=== PATIENT | female | born 1950 | race Caucasian/White ===

== ENCOUNTER 2016-11-26 05:39 | Inpatient (IN) | payer OTHER ==
[~2016-11-26] VITALS: Ht 162.6 cm; Wt 120.7 kg
--- NOTE | ~2016-11-26 | HC ---
[facility] [place] [address] CONSULTATION Name: JAIME BOWMAN Room #: 445-P [facility] M.R.#: [id number] Admission: 11/26/16 Attend Phys: Salima Call MD, Discharge: Date of : 52 Report #: [id number] THIS REPORT FOR: //name// CC: Salima DE LA TORRE DATE OF SERVICE: 11/26/2016 REFERRING PROVIDER: Salima Call MD REASON FOR CONSULTATION: Sleep apnea and possible early sepsis. CHIEF COMPLAINT: Abdominal infection. HISTORY OF PRESENT ILLNESS: Our group was asked to assist with management in this patient postoperatively, currently is on [address], a pleasant 66-year-old woman without any past pulmonary history other than obstructive sleep apnea, apparently had had significant problems after an abdominal surgery that was complicated by sepsis after surgery with infected abdominal mesh, this has been managed with recurrent admissions, she states a 5 in the last year and ongoing antibiotics. She had recently seen Dr. Call for a second opinion and has undergone exploratory laparotomy with debridement of infected abdominal wall fascia and removal of infected mesh. Currently, she is present with wound VAC device in place, somewhat somnolent, but arousable. She denies any significant pulmonary disease requiring inhaled therapy and has no tobacco abuse history. Has obstructive sleep apnea, is very compliant with her nocturnal CPAP. PAST MEDICAL HISTORY: 1. Hypertension. 2. Obstructive sleep apnea. 3. Anxiety and depressive disorder. 4. History of infected abdominal mesh. ALLERGIES: Include PENICILLIN. OUTPATIENT MEDICATIONS: 1. Bupropion. 2. Buspirone. 3. Celebrex. 4. Vitamin D. 5. Vitamin B12. 6. Doxycycline. 7. Probiotic. 8. Metoprolol. 9. Multivitamin. [facility] [place] [address] CONSULTATION Name: JAIME BOWMAN Room #: 445-P [facility]..#: [id number] Admission: 11/26/16 Attend Phys: Salmia Call MD, Discharge: Date of : 52 Report #: [id number] 10. Tramadol. 11. Oxybutynin. 12. Nocturnal CPAP, unclear settings. SOCIAL HISTORY: The patient is a never smoker, no alcohol consumption. 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 FAMILY HISTORY: Negative for any significant pulmonary disease. REVIEW OF SYSTEMS: Difficult to obtain due to somnolence best I can tell. CONSTITUTIONAL: No fevers, chills or sweats, change in weight or appetite. ENT: No upper respiratory congestion, rhinorrhea or dysphagia. CARDIOVASCULAR: No other cardiac disease other than hypertension. GASTROINTESTINAL: No nausea, vomiting, diarrhea, constipation, has some intermittent abdominal pain. Has some chronic abdominal drainage. GENITOURINARY: No dysuria, no frequency, some incontinence. INTEGUMENT: Denies any new rash. MUSCULOSKELETAL: Chronic arthritis. PHYSICAL EXAMINATION: VITAL SIGNS: Afebrile, pulse 90s, respiratory rate 20, blood pressure 160/89, oxygen saturation 94% on 2 liters nasal cannula and tidal CO2 in the 30s. GENERAL: This is a pleasant elderly woman, somnolent, but in no distress. HEENT: Clear oropharynx, Mallampati 3 airway, no thrush. NECK: Supple, no lymphadenopathy. LUNGS: Diminished, but clear. No wheezes or crackles. HEART: regular. No murmurs or gallops. ABDOMEN: Soft, mild diffuse tenderness, wound VAC in place. EXTREMITIES: With trace lower extremity edema. They are warm with 2+ pulses. INTEGUMENT: No significant rash noted. LABORATORY DATA: Hemoglobin 11, hematocrit 36. No other laboratories to review. No other radiograph to review. IMPRESSION: 1. Status post abdominal surgery as described above. 2. History of obstructive sleep apnea noted. 3. Chronic wound infection. 4. History of hypertension. 5. Hypoxemic respiratory failure expected postoperatively, likely due to some mild atelectasis. SUGGESTIONS: 1. Encourage incentive spirometry. 2. The patient [place] [address] CONSULTATION Name: JAIME BOWMAN Room #: 445-P [facility] M.R.#: [id number] Admission: 11/26/16 Attend Phys: Salima Call MD, Discharge: Date of : 52 Report #: [id number] 3. Continuous oximetry and end tidal CO2 monitoring nocturnal CPAP device. 4. We will continue to follow along with you. Thank you for requesting our suggestions. Suggest p.r.n. IV antihypertensives if indicated, if any poor control of hypertension. By: [id number] Benny Kelly MD /nt
--- NOTE | ~2016-11-26 | O ---
Former[facility] [place] [address] OPERATIVE REPORT Name: JAIME BOWMAN Room #: 445-P REG [facility] M.R.#: [id number] Admission: 11/26/16 Attend Phys: Salima Call MD, Discharge: Date of : 51 Report #: [id number] THIS REPORT FOR: //name// CC: Salima DE LA TORRE DATE OF SERVICE: 11/26/2016 PREOPERATIVE DIAGNOSES: 1. Nonhealing infected post-surgical wound with exposed mesh. 2. Morbid obesity with a body mass index of 46.13. 3. Hypertension. 4. Obstructive sleep apnea. 5. History of a Adalid-en-Y gastric bypass. 6. Bilateral lower extremity joint pain. 7. Anxiety. 8. Suspected intra-abdominal adhesions. POSTOPERATIVE DIAGNOSES: 1. Nonhealing infected post-surgical wound with exposed mesh. 2. Morbid obesity with a body mass index of 46.13. 3. Hypertension. 4. Obstructive sleep apnea. 5. History of a Adalid-en-Y gastric bypass. 6. Bilateral lower extremity joint pain. 7. Anxiety. 8. Dense intra-abdominal adhesions. 9. Incarcerated recurrent incisional ventral hernia. 10. Loss of abdominal domain. PROCEDURES PERFORMED: 1. Exploratory laparotomy. 2. Extensive lysis of adhesions lasting 212 minutes. 3. Excisional debridement of an infected abdominal wall fascia with explantation of infected mesh. 4. Segmental small-bowel resections times 2. 5. Bilateral component separation of the anterior abdominal wall to assist in fascial closure. 6. Complex abdominal wall reconstruction with an open sandwiched repair of an incarcerated recurrent incisional ventral hernia using a biomesh buttress. 7. Adjacent tissue transfer closure of the anterior abdominal wall measuring 42 x 36 cm in dimension (1512 square cm). 8. Placement of a Prevena topical wound VAC device. 9. This is a modifier 22 procedure for extreme difficulty of procedure secondary to the longstanding infected synthetic mesh causing an intense [address] [address] OPERATIVE REPORT Name: JAIME BOWMAN Room #: 445-P [facility] M.R.#: [id number] Admission: 11/26/16 Attend Phys: Salima Call MD, Discharge: Date of : 51 Report #: [id number] desmoplastic reaction intraabdominally that required a nearly 3-1/2 hours lysis of adhesions in this morbidly obese patient, and push the total operative time to 5-1/2 hours and it is owed to the overall generalized complexity of the complex repair necessary. SURGEON: Salima Call MD ELEVATOR CONDUCTOR: Casper Sanchez MD ANESTHESIA: General endotracheal anesthesia. ESTIMATED BLOOD LOSS: 300 mL. COMPLICATIONS: None appreciated. SPECIMENS: 1. Segments of small-bowel to pathology. 2. Explanted mesh and infected fascia to pathology. 3. Culture swabs to microbiology. COMPLICATIONS: None appreciated. INDICATIONS: The patient is a 66-year-old obese female with a past history of a Adalid-en-Y gastric bypass for which she sustained an incisional ventral hernia. The patient then underwent repair of her hernia with placement of a synthetic mesh and was in her usual state of health until she underwent a panniculectomy nearly a year ago to reduce her large apron that was lifestyle limiting. Shortly after surgery, the patient did develop nonhealing wounds down her longitudinal midline wound as well as at the juncture of her longitudinal midline wound and her transverse skin incisions. These were treated with local wound care and unfortunately she has had copious green purulent drainage emanate from her wounds throughout her postoperative course over the past several months that have been treated with antibiotics and local wound care. After a thorough discussion with infectious disease as well as the patient's primary care provider and a long discussion with the patient, we have elected to perform definitive surgical management with explantation of her grossly infected indwelling synthetic mesh and repair of any hernias found underlying as indicated in the above listed procedures. PROCEDURE: After explaining the risks, benefits and alternatives of the procedure with the patient in detail and obtaining written consent, the patient was brought to the operating room supine on the operating room table. After conducting a thorough timeout procedure, verifying correct patient and procedure, the patient was given general endotracheal anesthesia. Once adequate anesthesia was obtained, her SCDs were hooked up to pneumatic compression device and she was given a preoperative dose of antibiotics in line with the [address] [address] OPERATIVE REPORT Name: JAIME BOWMAN Room #: 445-P REG [facility] M.R.#: [id number] Admission: 11/26/16 Attend Phys: Salima Call MD, Discharge: Date of : 51 Report #: [id number] protocol. The patient's abdomen was prepped and draped in standard surgical sterile fashion. A #10 bladed scalpel was used to create a longitudinal midline wound approximately 3 cm superior and 3 cm inferior to her open nonhealing wound that measured approximately the size of a half dollar. Electrocautery was used to carry this down through skin and subcutaneous tissues to ensure hemostasis. Once I arrived upon the fascia that had obviously infected extruded mesh that was not adherent to any underlying structures, it was quite difficult to assess what we were looking at as the mesh was dual layered and once inside the synthetic mesh net of the anterior layer of the mesh, we saw grossly purulent drainage with the underlying mesh edges that appeared to be PTFE rolled under and adherent to the intra-abdominal compartment. This was impossible to ascertain exactly what was going on at this juncture due to the intense desmoplastic inflammatory reaction seen. I was quickly evident that we would not be able to do a limited excision of any mesh patch at this juncture and would necessitate formal definitive management with complete explantation of the mesh and definitive repair with biologic mesh moving forward. As such, the incision was extended from the subxiphoid location to the suprapubic location down the midline with #10 bladed scalpel. Electrocautery was used to carry this down through skin and subcutaneous tissues to ensure hemostasis and I gain entry into the abdomen in the subxiphoid location. Upon arriving at the fascial level, I scored this longitudinally and placed a finger in the abdomen and opened the longitudinal midline wound in this controlled fashion. The patient's extreme left lateral lobe of the liver was intimately adherent to the back side of the abdominal wall at this juncture and upon taking this down from the abdominal wall, there was a small laceration made in the liver, which was controlled with electrocautery and Surgicel was placed in the wound for complete hemostasis. All ductal structures were fully cauterized to prevent any potential for future bile leakage. We then continued opening the abdominal wall using electrocautery, the incision was carried inferiorly until I arrived upon the most cephalad aspect of the indwelling hernia patch. I then proceeded to gain circumferential control of the mesh and ultimately necessitated opening it down the midline with curved Rios scissors. A careful tedious dissection was now undertaken with lysis of adhesions using combination of electrocautery, Rios scissors, and Metzenbaum scissors ensuring that we were careful any time we were near loops of bowel to hopefully prevent injury to the bowel itself. I was able to ultimately fully excise the infected mesh patch and all nonviable infected fascia from the abdominal wall and in doing so, there were two loops of small intestine intimately plastered to the mesh that had rolled underneath and this was impossible to separate without creating significant serosal defects. As such, this was chiseled off with Metzenbaum scissors and the excised mesh and synthetic suture was passed off the field as specimen. Culture swabs were taken and passed off the field upon entry into the abdominal cavity. Now that I had explanted all synthetic material from the abdominal wall in full as well as debrided back all nonviable fascia circumferentially, I proceeded to run the small-bowel in its entirety. The two areas of question that were denuded were beyond repair and I proceeded to perform 2 segmental small-bowel resections [address] [address] OPERATIVE REPORT Name: JAIME BOWMAN Room #: 445-P REG [facility] M.R.#: [id number] Admission: 11/26/16 Attend Phys: Salima Call MD, Discharge: Date of : 51 Report #: [id number] using HALI blue load 75 mm stapler to transect them on either side after creating a window in the mesentery with electrocautery. LigaSure Impact device was used to come across the mesentery for hemostasis. Upon doing so, it appeared that both segmental resections were just opposed towards one another and as such, I was able to perform only one stapled reanastomosis. The bowel loops were now aligned in a [id number] functional end-to-end fashion. A single suture of 3-0 PDS was placed in the antimesenteric aspect to hold them in alignment and the antimesenteric corners of the staple lines were removed. I then utilized another firing of the HALI-75 mm blue load stapler by passing each limb of the stapler down the 2 enterotomies clamping and firing to create the anastomosis. The common enterotomy was elevated and was closed using a TX blue load 60 stapler. Excess anastomotic tissue was removed with a #10 bladed scalpel. Finger palpation of the anastomosis showed it to be widely patent. A single suture of 3-0 PDS was placed in the crotch of the staple line to act as an anti-tension stitch and the mesenteric defect was closed using running 3-0 PDS in standard fashion. I did elect to oversew the entire TX staple line using numerous interrupted sutures of 3-0 PDS in standard Lembert fashion. The rest of the small bowel and colon appeared healthy and uninjured throughout. This was then placed back into the abdomen. At this juncture, we assessed the ability to repair the recurrent hernia that was evident in the bed of the wound upon entry into the abdominal cavity. The patient now had evidence of slight loss of abdominal domain with extreme difficulty in approximating the fascial edges down the midline. This was secondary to the necessity of the abdominal wall debridement to take off all nonviable tissue from the abdominal wall. I now proceeded to perform bilateral component separation technique in the transversus abdominis rectus release fashion. I proceeded to elevate each of the fascial edges with a Irving clamps and scored posteriorly along the midline approximately 5 mm lateral to the midline fascia. I was then able to enter into the transversus space using electrocautery for hemostasis and carried this dissection as far laterally as possible. This was done bilaterally in the standard fashion. I was now able to easily medialize the posterior rectus sheath along its length and proceeded to close this in a standard running fashion using looped #1 PDS suture for the posterior layer. This brought the posterior layer closed and allowed me to select a piece of Strattice biologic mesh that measured 40 x 25 cm in dimension. This was trimmed to measure 30 x 25 cm and was placed in the immediate retrorectus location where it was sutured into place using numerous sutures of 0 PDS at appropriate intervals. These were placed extremely laterally in order to assure ourselves that when the midline fascial wound was closed, there was no rippling to the mesh whatsoever. In fact, it was taut throughout. Once these were placed, I proceeded to place a 19-Samoan round Dale-Amato drain anterior to the biologic mesh and brought this out to the suprapubic location where it was anchored to the skin using 2-0 nylon in standard fashion. I then proceeded to close the anterior fascial wound using two separate sutures of looped #1 PDS running them from inferior to superior and then second one from superior to inferior where they were tied in the middle. This brought the abdominal wall completely close down the midline. [address] [address] OPERATIVE REPORT Name: JAIME BOWMAN Room #: 445-P [facility] M.R.#: [id number] Admission: 11/26/16 Attend Phys: Salima Call MD, Discharge: Date of : 51 Report #: [id number] I did elect to place the additional piece that was trimmed away of biologic mesh to use as an onlay rather than wasted and as such skin flaps were created circumferentially to elevate the skin and subcutaneous tissues away from the fascia externally. The biologic mesh was then placed as an onlay, sutured into position using 0 PDS suture in standard fashion. This gave us an excellently buttressed onlay as well. The subcutaneous aspect was irrigated. I placed two additional 19-Samoan round Dale-Amato drains, one emanating from left lower quadrant and the other from the right lower quadrant where they were sutured to the skin using 2-0 nylon in standard fashion. These crossed low in the abdominal wall and ran up the gutters appropriately. As the patient is obese, her wound was able to come together, but was under excessive tension and as such, I did perform an adjacent tissue transfer closure of the anterior abdominal wall to assist in a tension-free closure that would hopefully not dehisced. As such, I used electrocautery to create relaxing incisions internally along the lateral aspect of the subcutaneous flaps and was able to medially rotate vascularized pedicles of subcutaneous tissue medially to overly the biologic mesh in question. This was anchored into position using numerous sutures of 3-0 Vicryl for the deep layer and flaps as well as for the more superficial subcutaneous layers and dermis. These were placed in an interrupted inverted standard fashion throughout. The abdominal wall was irrigated, skin had already been excised upon entry into the abdomen to leave only vascularized healthy tissue throughout. I then closed the midline wound using skin preet and applied a topical wound VAC Prevena device to help hopefully prevent postoperative wound complications. At the end of the lengthy procedure, all instrument, needle, and sponge counts were correct. The patient tolerated the procedure without incident, was awakened in the operating room and transitioned to the recovery room in stable condition with no apparent complications. <ELECTRONICALLY SIGNED> By: Salima Call MD, FACS 11/28/16 [id number] Salima Call MD, FACS /nt
--- NOTE | ~2016-11-26 | HC ---
[facility] [place] [address] CONSULTATION Name: JAIME BOWMAN Room #: 445-P [facility] M.R.#: [id number] Admission: 11/26/16 Attend Phys: Salima Call MD, Discharge: Date of : 51 Report #: [id number] THIS REPORT FOR: //name// CC: Salima DE LA TORRE TYPE OF REPORT: Infectious disease consultation. REASON FOR CONSULTATION: I was asked to evaluate concerning infected ventral abdominal mesh. HISTORY OF PRESENT ILLNESS: The patient was a 66-year old who had undergone a Adalid-en-Y gastric bypass in the remote past. Subsequently, required a ventral hernia repair with synthetic mesh. This has become infected. She has been on multiple courses of antibiotics for the last 9 months and comes in now with plan for surgical intervention. On doxycycline. Today, she underwent exploratory laparotomy with extensive lysis of adhesions and explantation of infected synthetic mesh with debridement of the infected abdominal wall fascia. She had two segmental small bowel resections. She had repair of incarcerated incision ventral hernia with biomesh and complex abdominal wall reconstruction. ALLERGIES: PENICILLIN. MEDICATIONS: As noted on her MAR, now including ciprofloxacin, doxycycline and metronidazole. PAST MEDICAL HISTORY: Significant for anxiety, depression, obstructive sleep apnea, panniculectomy and morbid obesity status post Adalid-en-Y gastric bypass. FAMILY HISTORY: Noncontributory. SOCIAL HISTORY: Nonsmoker. No significant alcohol intake. REVIEW OF SYSTEMS: No cough or sputum production. No nausea, vomiting or diarrhea. No dysuria or frequency. PHYSICAL EXAMINATION: VITAL SIGNS: Afebrile, hemodynamically stable. GENERAL: She just got out of surgery several hours ago. Hemodynamically was stable. She had NG tube in place. She was obese. CHEST: Clear. HEART: Regular. ABDOMEN: Diffusely tender. She had a Prevena wound VAC in place. EXTREMITIES: Unremarkable. Peripheral IV in place. LABORATORY STUDIES: Hemoglobin 11.9. [facility] 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 I will need to await final operative report for the details. The patient is allergic to penicillin. PLAN: Recommend continuing antibiotic coverage with pending further information from her operative note. She will have a chemistry and CBC performed. Monitor closely for any postoperative complications. <ELECTRONICALLY SIGNED> By: Lei Kilpatrick MD 11/27/16 1135 [id number] Lei Kilpatrick MD /nt
--- NOTE | ~2016-11-26 | H ---
[facility] [address] [address] HISTORY AND PHYSICAL Name: IVON BOWMANNA Room #: 445-P [facility] M.R.#: [id number] Admission: 11/28/16 Attend Phys: Salima Call MD, Discharge: 11/30/16 Date of : 51 Report #: [id number] THIS REPORT FOR: //name// For History and Physical, please see office documentation/handwritten note in the patient's medical record. <ELECTRONICALLY SIGNED> By: Salima Call MD, FACS 12/06/16 1013 0856 Salima Call MD, FACS /jr
--- NOTE | ~2016-11-26 | S ---
[facility] [address] [address] SURGICAL PATH RPT PROCEDURE Name: MILLY BOWMAN Room #: 445-P [facility] M.R.#: [id number] Admission: 11/26/16 Date of : 52 Discharge: Report #: [id number] Path Case #: [id number] PATHOLOGY REPORT COLLECTION DATE: 11/26/2016 RECEIVED DATE: 11/26/2016 SUBMITTING PHYS: Dr. Salima Call OTHER PHYS: Dr. Casper Morrissey SPECIMEN(S) RECEIVED: A.Infected abdominal mesh and tissue B.Mid small bowel #1 C.Mid small bowel #2 D.Umbilicus * * * * * * * * * * * * FINAL DIAGNOSIS: A. Infected abdominal mesh and tissue, history of hernia repair: - Mature adipose tissue showing marked congestion as well as reactive changes. - Large segment of mesh received along with tissue measuring 24 cm in greatest dimension (gross exam only) B. Small bowel, mid small bowel #1, resection: - Congested small bowel. - Mucosa showing no evidence of dysplasia or malignancy. - Margins unremarkable and viable. C. Small bowel, mid small bowel #2, resection attenuated small bowel associated with congestion: - Associated mesenteric tissue showing areas of fat necrosis. - Negative for dysplasia or malignancy of the mucosa. - Margins showing unremarkable and viable mucosa. Omentum, resection: - 25.2 cm of omentum showing areas of fat necrosis and congestion. - Negative for malignancy. D. Umbilicus, excision: - Marked congestion and mild chronic inflammation. (IUV:mml; d/t: 11/28/2016) PATHOLOGIST: Rima Dickson M.D. REPORT ELECTRONICALLY SIGNED BY: Rima Dickson M.D. DATE/TIME: 11/28/2016 16:27 * * * * * * * * * * * * GROSS PATHOLOGY: A. The specimen is received in formalin labeled "Milly Bowman[address] [address] SURGICAL PATH RPT PROCEDURE Name: IVON BOWMANNA Room #: 445-P [facility] M..#: [id number] Admission: 11/26/16 Date of : 52 Discharge: Report #: [id number] Path Case #: [id number] infected abdominal mesh and scar tissue". Received is a large segment of mesh with attached yellow-watt to pink-sen fibrous soft tissue measuring 24.4 x 12.2 x 5.1 cm in aggregate dimensions. [employer] sections of soft tissue are submitted in cassette A1. A gross photograph is taken. B. The specimen is received in formalin labeled "Milly Bowman mid small bowel #1". Received is a segment of small bowel measuring 4.3 cm in length by 2.2 cm in diameter. Both margins are stapled closed. The attached mesenteric fat measures 1.8 cm in thickness. The serosal surface is pink-watt to pink-sen in appearance with a moderate amount of adhesions present, as well as a suture present located 2.0 cm from the closest margin. The specimen is opened along the antimesenteric line to reveal light watt mucosa with normal architectural folds. No distinct nodules or lesions are noted grossly. Sectioning through the attached mesenteric fat reveals no readily identifiable lymph nodes. The specimen is submitted representatively as follows: B1 both margins B2 telephone services sales representative sections through sutured area B3 additional telephone services sales representative cross-sections. C. The specimen is received in formalin labeled "Milly Bowman, mid small bowel #2". Received is an unoriented segment of small bowel measuring 15.4 cm in length by 2.5 cm in diameter. Both margins are stapled closed. The attached mesenteric fat measures up to 2.2 cm in thickness. The serosal surface is pink-watt to pink-sen in appearance with a moderate amount of overlying adhesions and a suture located 2.7 cm from the closest margin. The specimen is opened along the antimesenteric line to reveal light watt mucosa with normal architectural folds. No distinct nodules or lesions are noted grossly. There is a large amount of attached omentum measuring 25.2 x 10.9 x 4.9 cm. No distinct nodules or lesions are noted grossly. Sectioning through the attached mesenteric fat reveals no readily identifiable lymph nodes. The specimen is submitted representatively as follows: C1 both margins C2 telephone services sales representative section through sutured area C3 telephone services sales representative cross-sections C4 telephone services sales representative section of omentum. D. The specimen is received in formalin labeled "Milly Bowman, umbilicus". Received is an excision of pale watt to dusky sen-watt skin with attached yellow-watt to red-brown fibroadipose tissue measuring 7.2 x 1.5 x 1.4 cm in greatest dimensions. The specimen is submitted representatively in cassette D1. (CAA; 11/27/2016) CLINICAL HISTORY: [address] [address] SURGICAL PATH RPT PROCEDURE Name: MILLY BOWMAN Room #: 445-P [facility] M.R.#: [id number] Admission: 11/26/16 Date of : 52 Discharge: Report #: [id number] Path Case #: [id number] Open abdominal wall wound INITIAL CPT CODE(S): A; 55812 B; 94934 C; 46755, 55129 D; 73314 Professional services performed by [facility] at [facility] [address], [place] [address] Technical services performed by [facility] at [address] [place] [address], [place] [address]. [facility] [address] [place] [address] PHONE: [phone] DIRECTOR: David Humphrey M.D. * * * END OF REPORT * * *
[~2016-11-26 05:39] MED LIST: BUPROPION HCL150 M1 PO; BUSPIRONE HCL10 MG PO; CELEBREX 200 M200 M1 PO; DITROPAN XL10 M1 PO; DOXYCYCLINE HY100 MG PO; GUMMI BEAR MUL1 EAC1 PO; MAGNESIUM OXID200 MG PO; POTASSIUM GLUCO99 M2 PO; PRESTIQUE PO; PROBIOTIC1 EAC1 PO; TOPROL XL25 MG PO; TRAMADOL 50 MG50 MG PO; VITAMIN B-12500 MCG PO; VITAMIN D2000 UNIT PO; ZINC50 M1 PO
[2016-11-26 06:15] VITALS: BP 141/70
[2016-11-26 07:06] LABS: HEMATOCRIT 36.1 % (37.0-47.0); HEMOGLOBIN 11.9 gm/dL (12.0-15.0)
[2016-11-26 15:58] VITALS: BP 156/87
[2016-11-26 16:30] VITALS: BP 153/96
[2016-11-26 17:30] VITALS: BP 160/89
[2016-11-26 18:30] VITALS: BP 131/73
[2016-11-26 23:48] VITALS: BP 136/78
[2016-11-27 04:28] LABS: HEMATOCRIT 32.3 % (37.0-47.0); HEMOGLOBIN 10.3 gm/dL (12.0-15.0); MCH 27.5 pg (26.0-34.0); MCHC 31.9 g/dL (28.0-37.0); MCV 86.5 fL (80.0-100.0); RBC 3.73 mil/uL (4.20-5.00); RDW 14.5 % (10.5-14.5); WBC 12.6 thou/uL (4.0-11.0)
[2016-11-27 04:39] LABS: CALCIUM 8.7 mg/dL (8.5-10.1); CREATININE 1.2 mg/dL (0.6-1.0); POTASSIUM 5.5 mmol/L (3.5-5.1)
[2016-11-27 05:02] VITALS: BP 147/80
[2016-11-27 07:45] VITALS: BP 140/72
[2016-11-27 16:22] VITALS: BP 150/74
[2016-11-27 19:22] VITALS: BP 140/81
[2016-11-28 05:45] VITALS: BP 131/56
[2016-11-28 08:00] VITALS: BP 150/74
[2016-11-28 08:45] LABS: ABSOLUTE NEUTROPHILS 10.5 thou/uL (1.4-8.2); BASOPHILS 0.6 % (0.0-2.0); HEMATOCRIT 25.2 % (37.0-47.0); LYMPHOCYTES 13.8 % (24.0-44.0); MCH 27.8 pg (26.0-34.0); MCHC 32.4 g/dL (28.0-37.0); MCV 85.8 fL (80.0-100.0); MONOCYTES 11.2 % (1.0-8.0); POLYS 72.4 % (36.0-66.0); RBC 2.94 mil/uL (4.20-5.00); RDW 14.6 % (10.5-14.5); WBC 14.5 thou/uL (4.0-11.0)
[2016-11-28 08:55] LABS: ALBUMIN 2.1 g/dL (3.4-5.0); CALCIUM 8.3 mg/dL (8.5-10.1); CREATININE 0.9 mg/dL (0.6-1.0); MAGNESIUM 1.7 mg/dL (1.8-2.4); POTASSIUM 4.3 mmol/L (3.5-5.1); TOTAL BILIRUBIN 0.5 mg/dL (<0.1-1.0); TOTAL PROTEIN 5.6 g/dL (6.4-8.2)
[2016-11-28 09:06] LABS: HEMOGLOBIN 8.2 gm/dL (12.0-15.0); MANUAL DIFF NO; PLATELET COUNT 273 thou/uL (150-400)
[2016-11-28 14:19] VITALS: BP 150/74
[2016-11-28 16:00] VITALS: BP 179/69
[2016-11-28 20:05] VITALS: BP 148/64
[2016-11-29 04:10] VITALS: BP 137/65
[2016-11-29 06:28] LABS: ABSOLUTE NEUTROPHILS 8.6 thou/uL (1.4-8.2); BASOPHILS 0.5 % (0.0-2.0); EOSINOPHILS 3.3 % (0.0-3.0); HEMATOCRIT 23.3 % (37.0-47.0); HEMOGLOBIN 7.4 gm/dL (12.0-15.0); LYMPHOCYTES 14.2 % (24.0-44.0); MCH 27.7 pg (26.0-34.0); MCHC 31.9 g/dL (28.0-37.0); MCV 86.7 fL (80.0-100.0); MONOCYTES 9.6 % (1.0-8.0); PLATELET COUNT 276 thou/uL (150-400); POLYS 72.4 % (36.0-66.0); RBC 2.69 mil/uL (4.20-5.00); RDW 14.7 % (10.5-14.5); WBC 11.8 thou/uL (4.0-11.0)
[2016-11-29 06:30] LABS: MANUAL DIFF NO
[2016-11-29 06:43] LABS: ALBUMIN 2.2 g/dL (3.4-5.0); CALCIUM 8.5 mg/dL (8.5-10.1); CREATININE 0.9 mg/dL (0.6-1.0); POTASSIUM 3.8 mmol/L (3.5-5.1); TOTAL BILIRUBIN 0.5 mg/dL (<0.1-1.0); TOTAL PROTEIN 5.9 g/dL (6.4-8.2)
[2016-11-29 08:00] VITALS: BP 143/62
[2016-11-29 16:00] VITALS: BP 104/71
[2016-11-29 19:30] VITALS: BP 132/54
[2016-11-30 03:15] LABS: HEMATOCRIT 22.7 % (37.0-47.0); HEMOGLOBIN 7.4 gm/dL (12.0-15.0); MCH 28.2 pg (26.0-34.0); MCHC 32.8 g/dL (28.0-37.0); RBC 2.64 mil/uL (4.20-5.00); RDW 14.4 % (10.5-14.5); WBC 9.6 thou/uL (4.0-11.0)
[2016-11-30 03:26] LABS: ALBUMIN 2.2 g/dL (3.4-5.0); CALCIUM 8.4 mg/dL (8.5-10.1); CREATININE 0.8 mg/dL (0.6-1.0); PHOSPHORUS 3.3 mg/dL (2.5-4.9); POTASSIUM 3.8 mmol/L (3.5-5.1)
[2016-11-30 04:55] VITALS: BP 130/75
[2016-11-30 08:03] VITALS: BP 132/62
[2016-11-30] MEDS ORDERED: HYDROCODON-ACE1 EAC7 PO (09:51)
[2016-11-30] MEDS ORDERED: COLACE100 MG PO (09:52)
[2016-11-30] MEDS ORDERED: LEVAQUIN 500 M500 M2 PO (10:04)
[2016-11-30 10:32] VITALS: BP 150/74
[2016-11-30 10:47] VITALS: BP 150/74
== END 2016-11-30 16:43 | disposition home health service (06) | DRG 853 ==
LOC: TBA 05:39 → OR 05:39 → 4S 15:48 → OR 11-28 19:29 → 4S 11-28 19:30 → OR 12-09 14:14
PROVIDERS: Hospitalist; Surgery
DX: A41.9 Sepsis, unspecified organism (principal); J96.01 Acute respiratory failure with hypoxia; T83.728A Exposure of other implanted mesh into organ or tissue, initial encounter; K43.0 Incisional hernia with obstruction, without gangrene; N17.9 Acute kidney failure, unspecified; Z68.42 Body mass index [BMI] 45.0-49.9, adult; E66.01 Morbid (severe) obesity due to excess calories; I10 Essential (primary) hypertension; E78.5 Hyperlipidemia, unspecified; G47.33 Obstructive sleep apnea (adult) (pediatric); D64.9 Anemia, unspecified; F41.9 Anxiety disorder, unspecified; F32.9 Major depressive disorder, single episode, unspecified; Y83.9 Surgical procedure, unspecified as the cause of abnormal reaction of the patient, or of later complication, without mention of misadventure at the time of the procedure; Z98.84 Bariatric surgery status; Z88.0 Allergy status to penicillin; Y92.89 Other specified places as the place of occurrence of the external cause
CPT/HCPCS: 10102; 50010; 50093; 50101; 50331; 50386; 50455; 50648; 50953; 51412; 51435; 51708; 51712; 54124; 56524; 56525; 56527; 56530; 56639; 57092; 62110; 62900; 70005

== ENCOUNTER 2016-12-07 13:08 | Emergency (ER) | payer OTHER ==
[~2016-12-07] VITALS: Ht 162.6 cm; Wt 113.0 kg
[~2016-12-07 13:08] MED LIST changes: +COLACE100 MG PO; +HYDROCODON-ACE1 EAC7 PO; +LEVAQUIN 500 M500 M2 PO
[2016-12-07 15:44] LABS: ABSOLUTE NEUTROPHILS 8.7 thou/uL (1.4-8.2); BASOPHILS 1.4 % (0.0-2.0); EOSINOPHILS 1.4 % (0.0-3.0); HEMATOCRIT 26.2 % (37.0-47.0); HEMOGLOBIN 8.4 gm/dL (12.0-15.0); LYMPHOCYTES 15.3 % (24.0-44.0); MCH 27.2 pg (26.0-34.0); MCHC 32.2 g/dL (28.0-37.0); MCV 84.5 fL (80.0-100.0); MONOCYTES 10.2 % (1.0-8.0); PLATELET COUNT 559 thou/uL (150-400); POLYS 71.7 % (36.0-66.0); RDW 15.2 % (10.5-14.5); WBC 12.2 thou/uL (4.0-11.0)
[2016-12-07 15:46] LABS: MANUAL DIFF NO
[2016-12-07 16:06] LABS: CALCIUM 8.8 mg/dL (8.5-10.1); CREATININE 0.9 mg/dL (0.6-1.0); POTASSIUM 3.3 mmol/L (3.5-5.1)
[2016-12-07 16:10] LABS: ALBUMIN 2.4 g/dL (3.4-5.0); DIRECT BILIRUBIN 0.1 mg/dL (<0.1-0.3); TOTAL BILIRUBIN 0.5 mg/dL (<0.1-1.0); TOTAL PROTEIN 6.5 g/dL (6.4-8.2)
== END 2016-12-07 19:00 | disposition home or self-care (01) ==
LOC: ER 13:08
PROVIDERS: Nurse Practitioner
DX: R10.30 Lower abdominal pain, unspecified (principal); Z91.14 Patient's other noncompliance with medication regimen; I10 Essential (primary) hypertension; F32.9 Major depressive disorder, single episode, unspecified; F41.9 Anxiety disorder, unspecified; G47.30 Sleep apnea, unspecified; Z98.890 Other specified postprocedural states; Z88.0 Allergy status to penicillin

== ENCOUNTER 2016-12-16 13:25 | Emergency (ER) | payer OTHER ==
[~2016-12-16] VITALS: Ht 162.6 cm; Wt 111.1 kg
[2016-12-16 14:29] LABS: ABSOLUTE NEUTROPHILS 8.5 thou/uL (1.4-8.2); BASOPHILS 0.9 % (0.0-2.0); EOSINOPHILS 0.9 % (0.0-3.0); HEMATOCRIT 28.9 % (37.0-47.0); LYMPHOCYTES 20.9 % (24.0-44.0); MANUAL DIFF NO; MCH 25.9 pg (26.0-34.0); MCHC 31.2 g/dL (28.0-37.0); MCV 83.1 fL (80.0-100.0); MONOCYTES 8.2 % (1.0-8.0); PLATELET COUNT 718 thou/uL (150-400); POLYS 69.1 % (36.0-66.0); RBC 3.48 mil/uL (4.20-5.00); RDW 15.6 % (10.5-14.5); WBC 12.3 thou/uL (4.0-11.0)
== END 2016-12-16 15:39 | disposition home or self-care (01) ==
LOC: ER 13:25
PROVIDERS: Nurse Practitioner
DX: K91.840 Postprocedural hemorrhage of a digestive system organ or structure following a digestive system procedure (principal); I10 Essential (primary) hypertension; F32.9 Major depressive disorder, single episode, unspecified; F41.9 Anxiety disorder, unspecified; G47.30 Sleep apnea, unspecified; Z98.890 Other specified postprocedural states; Z88.0 Allergy status to penicillin